=== PATIENT | male | born 1995 | race Caucasian/White ===

== ENCOUNTER 2020-08-31 09:52 | Day surgery (SDC) | payer BC ==
[2020-08-31] MEDS ORDERED: Ringers Lactate 1,000 ML IV ONE (10:24)
[2020-08-31] MEDS ORDERED: ACETAMINOPHEN 500 MG TAB ONE (10:29)
[2020-08-31] MEDS ORDERED: CELECOXIB 100 MG CAPSULE ONE (10:29)
[2020-08-31] MEDS ORDERED: BUPIVACAINE 0.25% PF 10 ML VIAL ONE (11:37)
[2020-08-31] MEDS ORDERED: MIDAZOLAM HCL 2 MG/2 ML INJ ONE (11:49)
[2020-08-31] MEDS ORDERED: propofoL 200 MG/20 ML VIAL IV ONE (11:49)
[2020-08-31] MEDS ORDERED: LIDOCAINE 1% MPF 5 ML VIAL ONE (11:49)
[2020-08-31] MEDS ORDERED: ROCURONIUM 50 MG/5 ML VIAL IV ONE (11:49)
[2020-08-31] MEDS ORDERED: FENTANYL CITR 250 MCG/5 ML ONE (11:50)
[2020-08-31] MEDS ORDERED: KETOROLAC 30 MG/ML INJ ONE (12:22)
[2020-08-31] MEDS ORDERED: dexAMETHasone 10 MG/ML VIAL ONE (12:22)
[2020-08-31] MEDS ORDERED: ONDANSETRON 4 MG/2 ML VIAL ONE (12:23)
[2020-08-31] MEDS ORDERED: GLYCOPYRROLATE 0.2 MG/ML SYR ONE ×2 (12:24→12:35)
[2020-08-31] MEDS ORDERED: NEOSTIGMINE 1 MG/ML -5 ML ONE (12:36)
--- NOTE | 2020-08-31 12:36 | P.OP ---
Pre-Op Diagnosis: Chronic tonsillitis Post-Op Diagnosis: Chronic tonsillitis Procedure: Tonsillectomy Anesthesia: Other (General via ETT) Fluids/ Blood products: Other (crystalloid 800ml) Estimated blood loss: Other (5ml) Specimen: Other (bilateral tonsils) Complications: None Implants: None Indication: Patient persistent issues in spite of good medical management. Details of Operation: The patient was brought to the operating room and placed under general anesthesia via endotracheal tube. The head of bed was turned 90 degrees. A Shoulder roll was placed and the neck extended. A head drape was applied. The McIvor mouth gag was placed and suspended from the Ruiz stand. The oxygen concentrate was confirmed with the paper and pulp mill operator and was less than forty percent. Weight-based dexamethasone was administered by the paper and pulp [employer] operator. The soft palate was palpated and there was no submucous cleft. A red rubber catheter was placed in the nose and secured to retract the soft palate. The tonsils were noted to be large with deep crypts, liths and scarred to the underlying muscle. The left tonsil was grasped with a straight Allis clamp. The bovie electocautery was used to incision the mucosa over the anterior pillar and identify the tonsillar capsule. The tonsil was dissected using cautery and blunt dissection until free from soft tissue attachments. A 0 vicryl endoloop was used to tie a vessel in the left inferior tonsillar fossa. A tonsil ball was placed to aid hemostasis. The right tonsil was removed in a similar manner. The laryngeal mirror was used to visualize the nasopharynx. The adenoid size was minimal. The adenoids were not removed. Hemostasis was achieved using packing and cautery as needed. Blood loss was minimal. All packing was removed. The tonsillar fossae were injected with 0.25% Marcaine. A total of 3 mL was used. A Salum sump orogastric tube was used to decompress the stomach. The red rubber catheter was removed and used to suction the nasopharynx and nasal cavity. The mouth gag was removed; there was no evidence of injury to the lips, teeth or tongue. The mandible was mobile. Disposition: The patient was then awakened from anesthesia and taken to the recovery room in stable condition.
[2020-08-31] MEDS: HYDROMORPHONE HCL 1 MG/ML INJ ONE ×2 (12:56→13:02)
[2020-08-31 14:29] VITALS: BP 128/72; TEMP 97.9; O2SAT 99
== END 2020-08-31 14:20 | disposition home or self-care (01) ==
LOC: OR 09:52
PROVIDERS: ATTEND Otolaryngology
PROC: 0CTPXZZ Resection of Tonsils, External Approach (ICD-10-PCS; principal; 2020-08-31 11:30)
DX: J35.01 Chronic tonsillitis (principal); Z20.822 Contact with and (suspected) exposure to COVID-19
CPT/HCPCS: 88304; 42826; U0002; J2704; J2250; J3010; J1100; J1170; J2710; J7120; J2405